=== PATIENT | male | born 1990 | race Caucasian/White ===

== ENCOUNTER 2016-09-17 10:02 | Emergency (ER) | payer OTHER ==
[~2016-09-17] VITALS: Ht 182.9 cm; Wt 117.0 kg
[2016-09-17] MEDS ORDERED: MELA5TAB20 PO (10:18)
[2016-09-17] MEDS ORDERED: IPRATROPIUM 0.5MG/ALBUTEROL 2.5MG INH SOL UD 3ML (DUONEB)(J7620) NEB ONE (11:30)
[2016-09-17 11:51] LABS: BASO # 0.1 K/mm3 (0.0-0.2); BASO % 0.8 % (0.0-1.0); EOS # 0.1 K/mm3 (0.0-0.50); EOS % 1.3 % (0.0-3.0); LARGE UNSTAINED CELL # 0.2 K/mm3 (0.0-0.4); LARGE UNSTAINED CELL % 1.7 % (0.0-4.0); LYMPH # 2.2 K/mm3 (1.5-6.5); LYMPH % 20.4 % (24.0-44.0); MEAN CORPUSCULAR HEMOGLOBIN 31.4 pg (27.0-33.0); MEAN CORPUSCULAR VOLUME 89.8 fl (80.0-96.0); MONO # 0.7 K/mm3 (0.0-0.8); MONO % 6.6 % (0.0-5.0); NEUTROPHILS # 6.9 K/mm3 (1.8-7.7); NEUTROPHILS % 69.2 % (36.0-66.0); PLATELET COUNT, AUTOMATED 238 k/mm3 (150-450); RED CELL DISTRIBUTION WIDTH 12.3 % (11.5-14.5)
--- NOTE | 2016-09-17 12:02 | REP ---
Clinical: Chest pain . Comparison: None . Technique: PA and lateral. Findings: The mediastinum and cardiac silhouette are normal. The lung diego are clear and without acute consolidation, effusion, or pneumothorax. The skeletal structures are intact and normal. Impression: 1. No acute cardiopulmonary process. Signed by Arnoldo Mast MD 09/17/2016 11:51 A
[2016-09-17 12:18] LABS: ALKALINE PHOSPHATASE 76 U/L (45-117); ALT/SGPT 86 U/L (12-78); ANION GAP 5 MEQ/L (8-16); AST/SGOT 37 U/L (15-37); BILIRUBIN,TOTAL 0.8 MG/DL (0.2-1.0); BLOOD UREA NITROGEN 15 MG/DL (7-18); CALCIUM LEVEL 9.2 MG/DL (8.5-10.1); CARBON DIOXIDE LEVEL 28 MEQ/L (21-32); CHLORIDE LEVEL 107 MEQ/L (98-107); CREATININE FOR GFR 1.17 MG/DL (0.70-1.30); GLOMERULAR FILTRATION RATE > 60.0 (>60); GLUCOSE, FASTING 89 MG/DL (70-105); POTASSIUM SERUM 4.2 MEQ/L (3.5-5.1); SODIUM LEVEL 140 MEQ/L (136-145)
[2016-09-17 12:54] VITALS: BP 162/87
[2016-09-17] MEDS ORDERED: MOBI4TAB PO (13:09)
[2016-09-17] MEDS ORDERED: ZANA4CAP PO (13:09)
--- NOTE | 2016-09-18 07:29 | ECGEPIP ---
Stationary ECG Study [facility] - ED Test Date: 2016-09-17 Pat Name: casi gregorio Department: Room: - Gender: M [employer] Operator: ct : 1990 Requested By: VIRGIL Chapa PA-C Order Number: [id number] Reading MD: Taylor Francis Measurements Intervals [place] Rate: 67 P: 21 RI: 158 QRS: 52 QRSD: 98 T: 11 QT: 389 QTc: 412 Interpretive Statements SINUS RHYTHM NO PRIOR FOR COMPARISON Electronically Signed On 09-18-2016 7:29:40 EDT by Taylor Francis
== END 2016-09-17 13:21 | disposition home or self-care (01) ==
LOC: M ED 10:02
DX: F41.9 Anxiety disorder, unspecified (principal); M51.9 Unspecified thoracic, thoracolumbar and lumbosacral intervertebral disc disorder; F33.9 Major depressive disorder, recurrent, unspecified; Z79.899 Other long term (current) drug therapy